=== PATIENT | female | born 1995 | race Caucasian/White ===

== ENCOUNTER → 2017-01-31 | Day surgery (SDC) | payer OTHER ==
--- NOTE | 2017-01-30 08:51 | MH ---
cc: CHINMAY DUBOSE M.D. DATE OF ADMISSION: 01/31/2017 INDICATIONS A 21-year-old female with chronic recurrent tonsillitis and tonsil hypertrophy. She is to undergo tonsillectomy. ALLERGIES The past medical history shows allergies to AMOXICILLIN. PHYSICAL EXAMINATION GENERAL: A well-developed, well-nourished female in no apparent distress. HEENT: Normocephalic, atraumatic. Extraocular motions intact. External ear canals clear. Lips, oral mucosa and oropharynx show no lesion. Tonsils 3+ with erythema and debris and tonsil crypts. NECK: The neck shows no masses. CHEST: Clear to auscultation. HEART: Regular rate. ABDOMEN: Soft. EXTREMITIES: No lesion. NEUROLOGIC: Nonfocal. ASSESSMENT AND PLAN This is a 21-year-old female with chronic recurrent tonsillitis and tonsil hypertrophy to undergo tonsillectomy. The risks and benefits were discussed with the patient. The risks include but are not limited to those of anesthesia, bleeding, unfavorable scarring, velopharyngeal insufficiency, dehydration, depression, abscess, voice change, bleeding. The patient states she understands and accepts the risks of the procedure. MD STEFAN Colon/ELIZABETH /7:44 AM /8:44 AM
[~2017-01-31] VITALS: Ht 170.2 cm; Wt 79.1 kg
[~2017-01-31] MED LIST: ACETAMINOPHEN 1000 MG/100 ML VIAL IV ONE; ACETAMINOPHEN 325MG/HYDROcodone 7.5MG/15ML UDC ONE; ALBU0.63 NEB; HYDR1SOL; INSULIN HUMAN REGULAR 1,000 UNITS/10 ML VIAL SQ PRN; LACTATED RINGER'S 1000 ML IV SCH; MACR100C2 PO; METOPROLOL TARTRATE 25 MG TAB PO PRN; ONDANSETRON HCL 4 MG/2 ML VIAL IV PUSH ONE; ORTHTAB4 PO; PROPOFOL 200 MG/20 ML AMP IV ONE; SODIUM CHLORID 0.9% 500 ML IV SCH; ZOFR4TAB3 SL; ceFAZolin 1,000 MG/NS 100 ML IV SCH; fentaNYL CITRATE 250 MCG/5 ML AMP ONE
[2017-01-31 07:53] VITALS: BP 135/74; PULSE 93; RESP 16; TEMP 98.5; O2SAT 100
[2017-01-31 07:57] LABS: AUTOMATED NEUTROPHIL # 5.3 TH/MM3 (1.8-7.7); BASOPHIL # 0.1 TH/MM3 (0-0.2); BASOPHIL % 0.6 % (0.0-2.0); EOSINOPHIL # 0.2 TH/MM3 (0-0.4); EOSINOPHIL % 2.3 % (0.0-4.0); HEMATOCRIT 37.1 % (35.0-46.0); HEMO FLAGS DIFF FINAL; LYMPH % 32.4 % (9.0-44.0); LYMPHOCYTE # 3.2 TH/MM3 (1.0-4.8); MEAN CELL VOLUME 83.3 FL (80.0-100.0); MEAN CORPUSCULAR HEMOGLOBIN 29.5 PG (27.0-34.0); MEAN CORPUSCULAR HGB CONC 35.4 % (32.0-36.0); MONO % 10.6 % (0.0-8.0); NEUT % 54.1 % (16.0-70.0); PLATELET COUNT 263 TH/MM3 (150-450); RED BLOOD COUNT 4.46 MIL/MM3 (4.00-5.30); RED CELL DISTRIBUTION WIDTH 12.6 % (11.6-17.2); WHITE BLOOD COUNT 9.9 TH/MM3 (4.0-11.0)
--- NOTE | 2017-01-31 08:28 | MP ---
cc: CHINMAY DUBOSE M.D. DATE OF SURGERY: 01/31/2017 INDICATIONS A 21-year-old female with chronic recurrent tonsillitis with deep tonsil crypts and tonsil stones. She is to undergo tonsillectomy. PREOPERATIVE DIAGNOSIS Chronic recurrent tonsillitis, tonsil hypertrophy. POSTOPERATIVE DIAGNOSIS Chronic recurrent tonsillitis, tonsil hypertrophy. PROCEDURE Tonsillectomy. SUMMARY The patient was brought to the operating room and placed in supine position, successfully placed under general anesthesia and prepared in the usual fashion for this procedure. The oral cavity was exposed with a retractor. No submucous cleft. The right tonsil was removed with a coblation technique from superior to the inferior. The left tonsil was removed in a similar fashion. Both tonsil beds were inspected for hemostasis, obtained by suction cautery. The patient was suctioned. Retractor was removed. She was awakened, extubated, and taken to Recovery in stable condition. MD STEFAN Colon/ELIZABETH /8:13 AM /8:17 AM
[2017-01-31 11:00] VITALS: BP 118/63; PULSE 73; RESP 18; TEMP 97.4; O2SAT 98
== END | disposition home or self-care (01) ==
LOC: HSDC 06:41
PROVIDERS: ATTEND Specialist
DX: J03.91 Acute recurrent tonsillitis, unspecified (principal); J35.8 Other chronic diseases of tonsils and adenoids
CPT/HCPCS: 00170; 42826; 85025; 88304; J0131; J2405; J3010; J7120

== ENCOUNTER 2017-02-04 05:20 | Emergency (ER) | payer OTHER ==
[~2017-02-04] VITALS: Ht 170.2 cm; Wt 77.0 kg
[~2017-02-04 05:20] MED LIST changes: -ACETAMINOPHEN 1000 MG/100 ML VIAL IV ONE; -ACETAMINOPHEN 325MG/HYDROcodone 7.5MG/15ML UDC ONE; -HYDR1SOL; -INSULIN HUMAN REGULAR 1,000 UNITS/10 ML VIAL SQ PRN; -LACTATED RINGER'S 1000 ML IV SCH; -MACR100C2 PO; -METOPROLOL TARTRATE 25 MG TAB PO PRN; -ONDANSETRON HCL 4 MG/2 ML VIAL IV PUSH ONE; -PROPOFOL 200 MG/20 ML AMP IV ONE; -SODIUM CHLORID 0.9% 500 ML IV SCH; -ZOFR4TAB3 SL; -ceFAZolin 1,000 MG/NS 100 ML IV SCH; -fentaNYL CITRATE 250 MCG/5 ML AMP ONE
[2017-02-04 05:28] VITALS: BP 119/72; PULSE 98; RESP 18; TEMP 98.9; O2SAT 97
[2017-02-04 06:01] VITALS: BP 127/70; PULSE 107; RESP 18; TEMP 98.4; O2SAT 98
[2017-02-04] MEDS ORDERED: SODIUM CHLOR 0.9% 1000 ML INJ 1,000 ML IV SCH (06:24)
[2017-02-04] MEDS ORDERED: SODIUM CHLORIDE 0.9% FLUSH 10 ML FLUSH IV FLUSH PRN (06:30)
[2017-02-04] MEDS ORDERED: ONDANSETRON HCL 4 MG/2 ML VIAL IVP ONE (06:30)
[2017-02-04] MEDS ORDERED: ZOFR4TAB3 SL ×2 (06:53→10:35)
--- NOTE | 2017-02-04 06:54 | PD ---
HPI Chief Complaint: GI Complaint Time Seen by Provider: 06:15 Travel History International Travel<30 days: No Contact w/Intl Traveler<30days: No Traveled to known affect area: No History of Present Illness HPI The patient is 21 years old. Three and a half days prior she underwent a tonsillectomy by Dr. Pack. She has had nausea and vomiting for 2 days. She has had about 15 episodes at least. It has been nonbloody. There has been no bloody expectorant or hemoptysis or hematemesis. She's had no fever. There has been no diarrhea. She is tolerating oral hydration. Her pain medication has been somewhat helpful. It does not seem as though the pain medication, liquid hydrocodone has caused nausea and vomiting. Last menstruation 2 weeks prior. She's had no abnormal vaginal bleeding or discharge. She offers no urinary complaint. She has no past medical history and other than tonsillectomy she has no significant past surgical history. She is allergic to penicillin and azithromycin. PFSH Past Medical History Hx Anticoagulant Therapy: No Asthma: Yes Cancer: No Cardiovascular Problems: No Chemotherapy: No Cerebrovascular Accident: No Developmental Delay: No Diabetes: No Diminished Hearing: No Endocrine: No Genitourinary: No Hepatitis: No Hiatal Hernia: No Immune Disorder: No Musculoskeletal: No Neurologic: No Psychiatric: No Reproductive: No Respiratory: Yes (asthma ) Immunizations Current: Yes Thyroid Disease: No ?: Not LMP: 01/21/17 Past Surgical History AICD: No Body Medical Devices: NONE Hysterectomy: No Joint Replacement: No Pacemaker: No Tonsillectomy: Yes Other Surgery: Yes (CYST REMOVED FROM LEFT SHOULDER) Social History Alcohol Use: No Tobacco Use: No Substance Use: No Allergies-Medications (Allergen,Severity, Reaction): Coded Allergies: Penicillin (Verified Allergy, Severe, Hives, 02/04/17) Azithromycin (Verified Allergy, Intermediate, Hives, 02/04/17) Reported Meds & Prescriptions Reported Meds & Active Scripts Active Zofran Odt (Ondansetron Odt) 4 Mg Tab 4 Mg SL Q8HR PRN Macrobid (Nitrofurantoin Monoh/Nitrofur Macro) 100 Mg Cap 100 Mg PO BID Ortho Tri-Cyclen (Norgestimate-Ethinyl Estradiol) 0.18/0.215/0.25 mg-35 Mcg Tab 1 Tab PO DAILY Reported Hydrocodone Bitartrate/AC 5-217 mg/10Ml (Hydrocodone-Acetaminophen) 1 Tomasa Tomasa Albuterol Neb (Albuterol Sulfate) 0.63 Mg/3 Ml Neb 0.63 Mg NEB Q6HR NEB PRN Review of Systems Except as stated in HPI: all other systems reviewed are Neg General / Constitutional: No: Fever Gastrointestinal: Positive: Nausea, Vomiting, No: Diarrhea, Abdominal Pain Physical Exam Narrative GENERAL: 21-year-old female pleasant well-nourished well-developed SKIN: Focused skin assessment warm/dry. HEAD: Atraumatic. Normocephalic. EYES: Pupils equal and round. No scleral icterus. No injection or drainage. ENT: No nasal bleeding or discharge. Mucous membranes pink and moist. Fibrinous exudate about the tonsillar fossae bilaterally. Minimal erythema of the soft palate without asymmetry or suggestion of infectious process. NECK: Trachea midline. No JVD. CARDIOVASCULAR: Regular rate and rhythm. No murmur appreciated. RESPIRATORY: No accessory muscle use. Clear to auscultation. Breath sounds equal bilaterally. GASTROINTESTINAL: Abdomen soft, non-tender, nondistended. Hepatic and splenic margins not palpable. MUSCULOSKELETAL: No obvious deformities. No clubbing. No cyanosis. No edema. NEUROLOGICAL: Awake and alert. No obvious cranial nerve deficits. Motor grossly within normal limits. Normal speech. PSYCHIATRIC: Appropriate mood and affect; insight and judgment normal. Data Data Last Documented VS Vital Signs Date Time Temp Pulse Resp B/P Pulse Ox O2 Delivery O2 Flow Rate FiO2 02/04/17 06:57 100 Room Air 02/04/17 06:01 98.4 107 18 127/70 Vital signs reviewed Orders Basic Metabolic Panel (Bmp) (02/04/17 06:24) Complete Blood Count With Diff (02/04/17 06:24) Urinalysis - C+S If Indicated (02/04/17 06:24) Iv Access Insert/Monitor (02/04/17 06:24) Ecg Monitoring (02/04/17 06:24) Oximetry (02/04/17 06:24) Ondansetron Inj (Zofran Inj) (02/04/17 06:30) Sodium Chlor 0.9% 1000 Ml Inj (Ns 1000 M (02/04/17 06:24) Sodium Chloride 0.9% Flush (Ns Flush) (02/04/17 06:30) Ed Urine Pregnancytest Poc (02/04/17 06:24) Urine Culture (02/04/17 08:40) Nitrofurantoin Monohyd Macrocr (Macrobid (02/04/17 10:30) Labs Laboratory Tests Test 02/04/17 02/04/17 06:55 08:40 White Blood Count 11.4 TH/MM3 Red Blood Count 4.43 MIL/MM3 Hemoglobin 12.5 GM/DL Hematocrit 36.9 % Mean Corpuscular Volume 83.3 FL Mean Corpuscular Hemoglobin 28.3 PG Mean Corpuscular Hemoglobin 33.9 % Concent Red Cell Distribution Width 12.1 % Platelet Count 276 TH/MM3 Mean Platelet Volume 10.4 FL Neutrophils (%) (Auto) 76.3 % Lymphocytes (%) (Auto) 13.8 % Monocytes (%) (Auto) 8.5 % Eosinophils (%) (Auto) 1.0 % Basophils (%) (Auto) 0.4 % Neutrophils # (Auto) 8.7 TH/MM3 Lymphocytes # (Auto) 1.6 TH/MM3 Monocytes # (Auto) 1.0 TH/MM3 Eosinophils # (Auto) 0.1 TH/MM3 Basophils # (Auto) 0.0 TH/MM3 CBC Comment DIFF FINAL Differential Comment Sodium Level 135 MEQ/L Potassium Level 3.8 MEQ/L Chloride Level 100 MEQ/L Carbon Dioxide Level 25.9 MEQ/L Anion Gap 9 MEQ/L Blood Urea Nitrogen 8 MG/DL Creatinine 0.73 MG/DL Estimat Glomerular Filtration 102 ML/MIN Rate Random Glucose 78 MG/DL Calcium Level 9.4 MG/DL Urine Color YELLOW Urine Turbidity CLEAR Urine pH 5.5 Urine Specific [place] 1.010 Urine Protein NEG mg/dL Urine Glucose (UA) NEG mg/dL Urine Ketones 150 mg/dL Urine Occult Blood NEG Urine Nitrite NEG Urine Bilirubin NEG Urine Urobilinogen LESS THAN 2.0 MG/DL Urine Leukocyte Esterase NEG Urine RBC LESS THAN 1 /hpf Urine WBC 3 /hpf Urine Squamous Epithelial 1 /hpf Cells Urine Bacteria MOD /hpf Microscopic Urinalysis Comment CULTURE INDICATED MDM Medical Decision Making Medical Screen Exam Complete: Yes Emergency Medical Condition: Yes Medical Record Reviewed: Yes Differential Diagnosis Constipation, Gastritis, Acute Cholecystitis, Biliary Colic, Pancreatitis, VAZQUEZ , Hepatitis, Bowel Obstruction, Cystitis, Mesenteric Ischemia, AAA, Appendicitis , Renal Stone/Hydronephrosis, GERD, perforated viscous Narrative Course CBC & BMP Diagram 02/04/17 06:55 UA pending at time of dictation. Pt reports feeling better at approx 715AM. Oncoming provider will f/u UA and prescribe antibiotics if necessary. Pt can be discharged in either case. Diagnosis Primary Impression: Vomiting Qualified Code: R11.10 - Vomiting, intractability of vomiting not specified, presence of nausea not specified, unspecified vomiting type Referrals: Dusty Pack MD 1 day Additional Instructions: You have a choice when it comes to health care, and we are glad that you chose [facility]. Hopefully, we have met your expectations on today's visit. You are welcome to return to [facility] at any time, as we are committed to meeting the health care needs of our community. Med/Other Pt SpecificInfo: Prescription(s) given Scripts Ondansetron Odt (Zofran Odt)4 Mg Tab4 Mg SL Q8HR PRN (Nausea/Vomiting) #10 TAB Ref 0 Prov:Anuj Machuca MD 02/04/17 Nitrofurantoin Monohydrate Macrocrystals (Macrobid)100 Mg Exa111 Mg PO BID #10 CAP Ref 0 Prov:Anuj Machuca MD 02/04/17 Disposition: 01 DISCHARGE HOME Condition: Stable Braeden Arrieta MD Feb 04, 2017 06:54 Braeden Arrieta MD Feb 04, 2017 06:54
[2017-02-04 06:57] VITALS: O2SAT 100
[2017-02-04] MEDS ORDERED: HYDR1SOL (07:06)
[2017-02-04 07:12] LABS: AUTOMATED NEUTROPHIL # 8.7 TH/MM3 (1.8-7.7); BASOPHIL % 0.4 % (0.0-2.0); EOSINOPHIL # 0.1 TH/MM3 (0-0.4); HEMATOCRIT 36.9 % (35.0-46.0); HEMO FLAGS DIFF FINAL; LYMPH % 13.8 % (9.0-44.0); LYMPHOCYTE # 1.6 TH/MM3 (1.0-4.8); MEAN CELL VOLUME 83.3 FL (80.0-100.0); MEAN CORPUSCULAR HEMOGLOBIN 28.3 PG (27.0-34.0); MEAN CORPUSCULAR HGB CONC 33.9 % (32.0-36.0); MONO % 8.5 % (0.0-8.0); NEUT % 76.3 % (16.0-70.0); PLATELET COUNT 276 TH/MM3 (150-450); RED BLOOD COUNT 4.43 MIL/MM3 (4.00-5.30); RED CELL DISTRIBUTION WIDTH 12.1 % (11.6-17.2); WHITE BLOOD COUNT 11.4 TH/MM3 (4.0-11.0)
[2017-02-04 07:25] LABS: BICARBONATE 25.9 MEQ/L (21.0-32.0); POTASSIUM 3.8 MEQ/L (3.5-5.1)
[2017-02-04 09:22] LABS: BACTERIA, URINE MOD /hpf; BLOOD, URINE NEG (NEG); COMMENT (UR) CULTURE INDICATED; CULTURE IF INDICATED CULTURE INDICATED; GLUCOSE,URINE NEG (NEG); KETONE, URINE 150 mg/dL (NEG); NITRITE,URINE NEG (NEG); PH, URINE 5.5 (5.0-8.5); SQUAMOUS EPITHELIAL CELL URINE 1 /hpf (0-5); URINE COLOR YELLOW (YELLW/STRAW)
[2017-02-04] MEDS ORDERED: MACR100C2 PO (09:53)
[2017-02-04] MEDS ORDERED: NITROFURANTOIN MONOHYD MACROCR 100 MG CAP PO ONE (10:30)
--- NOTE | 2017-02-04 10:38 | PD ---
Physical Exam Date Seen by Provider: Feb 04, 2017 Time Seen by Provider: 10:20 Narrative Patient signed out to me by Dr. Braeden Arrieta at 7 AM. The patient was awaiting a urinalysis. Urinalysis shows evidence of urinary tract infection. The patient has been given I V fluids and feels ready to be discharged. Data Data Last Documented VS Vital Signs Date Time Temp Pulse Resp B/P Pulse Ox O2 Delivery O2 Flow Rate FiO2 02/04/17 06:57 100 Room Air 02/04/17 06:01 98.4 107 18 127/70 Orders Basic Metabolic Panel (Bmp) (02/04/17 06:24) Complete Blood Count With Diff (02/04/17 06:24) Urinalysis - C+S If Indicated (02/04/17 06:24) Iv Access Insert/Monitor (02/04/17 06:24) Ecg Monitoring (02/04/17 06:24) Oximetry (02/04/17 06:24) Ondansetron Inj (Zofran Inj) (02/04/17 06:30) Sodium Chlor 0.9% 1000 Ml Inj (Ns 1000 M (02/04/17 06:24) Sodium Chloride 0.9% Flush (Ns Flush) (02/04/17 06:30) Ed Urine Pregnancytest Poc (02/04/17 06:24) Urine Culture (02/04/17 08:40) Nitrofurantoin Monohyd Macrocr (Macrobid (02/04/17 10:30) Labs Laboratory Tests Test 02/04/17 02/04/17 06:55 08:40 White Blood Count 11.4 TH/MM3 Red Blood Count 4.43 MIL/MM3 Hemoglobin 12.5 GM/DL Hematocrit 36.9 % Mean Corpuscular Volume 83.3 FL Mean Corpuscular Hemoglobin 28.3 PG Mean Corpuscular Hemoglobin 33.9 % Concent Red Cell Distribution Width 12.1 % Platelet Count 276 TH/MM3 Mean Platelet Volume 10.4 FL Neutrophils (%) (Auto) 76.3 % Lymphocytes (%) (Auto) 13.8 % Monocytes (%) (Auto) 8.5 % Eosinophils (%) (Auto) 1.0 % Basophils (%) (Auto) 0.4 % Neutrophils # (Auto) 8.7 TH/MM3 Lymphocytes # (Auto) 1.6 TH/MM3 Monocytes # (Auto) 1.0 TH/MM3 Eosinophils # (Auto) 0.1 TH/MM3 Basophils # (Auto) 0.0 TH/MM3 CBC Comment DIFF FINAL Differential Comment Sodium Level 135 MEQ/L Potassium Level 3.8 MEQ/L Chloride Level 100 MEQ/L Carbon Dioxide Level 25.9 MEQ/L Anion Gap 9 MEQ/L Blood Urea Nitrogen 8 MG/DL Creatinine 0.73 MG/DL Estimat Glomerular Filtration 102 ML/MIN Rate Random Glucose 78 MG/DL Calcium Level 9.4 MG/DL Urine Color YELLOW Urine Turbidity CLEAR Urine pH 5.5 Urine Specific [place] 1.010 Urine Protein NEG mg/dL Urine Glucose (UA) NEG mg/dL Urine Ketones 150 mg/dL Urine Occult Blood NEG Urine Nitrite NEG Urine Bilirubin NEG Urine Urobilinogen LESS THAN 2.0 MG/DL Urine Leukocyte Esterase NEG Urine RBC LESS THAN 1 /hpf Urine WBC 3 /hpf Urine Squamous Epithelial 1 /hpf Cells Urine Bacteria MOD /hpf Microscopic Urinalysis Comment CULTURE INDICATED MDM Medical Record Reviewed: Yes Supervised Visit with ALAN: No Narrative Course 21-year-old female status post tonsillectomy presents with nausea vomiting. Patient also has a UTI. Per prescription has been written for Macrobid 100 mg 10 days. Patient also has had a prescription for Zofran ODT, total number of 10. She is encouraged to follow up with Dr. Pack this week. She is in instructed to return if she does any continued symptoms or any other reason that concerned her. Diagnosis Primary Impression: Vomiting Qualified Code: R11.10 - Vomiting, intractability of vomiting not specified, presence of nausea not specified, unspecified vomiting type Additional Impression: UTI (urinary tract infection) Referrals: Dusty Pack MD 1 day Additional Instruction: You have a choice when it comes to health care, and we are glad that you chose [facility]. Hopefully, we have met your expectations on today's visit. You are welcome to return to [facility] at any time, as we are committed to meeting the health care needs of our community. Med/Other Pt SpecificInfo: Prescription(s) given Scripts Ondansetron Odt (Zofran Odt)4 Mg Tab4 Mg SL Q8HR PRN (Nausea/Vomiting) #10 TAB Ref 0 Prov:Anuj Machuca MD 02/04/17 Nitrofurantoin Monohydrate Macrocrystals (Macrobid)100 Mg Ovo437 Mg PO BID #10 CAP Ref 0 Prov:Anuj Machuca MD 02/04/17 Disposition: 01 DISCHARGE HOME Condition: Stable Anuj Machuca MD Feb 04, 2017 10:38
== END 2017-02-04 11:02 | disposition home or self-care (01) ==
LOC: NEPE 05:20
DX: R11.2 Nausea with vomiting, unspecified (principal); N39.0 Urinary tract infection, site not specified; B96.89 Other specified bacterial agents as the cause of diseases classified elsewhere
CPT/HCPCS: 80048; 81001; 84703; 85025; 87086; 96361; 96374; 99283; J2405; J7030